=== PATIENT | male | born 1965 | race Hispanic/Latino ===

== ENCOUNTER 2018-05-21 14:24 | Emergency (ER) | payer OTHER ==
[~2018-05-21] VITALS: Ht 170.2 cm; Wt 100.0 kg
[2018-05-21] MEDS ORDERED: METFORMIN850 MG PO (14:39)
[2018-05-21] MEDS ORDERED: FLEXERIL PO (16:11)
[2018-05-21] MEDS ORDERED: TORADOL PO (16:11)
[2018-05-21 16:40] VITALS: BP 148/71
== END 2018-05-21 16:40 | disposition home or self-care (01) | DRG 605 ==
LOC: ED 14:24
DX: S80.812A Abrasion, left lower leg, initial encounter (principal); S63.501A Unspecified sprain of right wrist, initial encounter; S13.9XXA Sprain of joints and ligaments of unspecified parts of neck, initial encounter; E11.9 Type 2 diabetes mellitus without complications; W01.0XXA Fall on same level from slipping, tripping and stumbling without subsequent striking against object, initial encounter; Y92.89 Other specified places as the place of occurrence of the external cause; Y99.0 Civilian activity done for income or pay